=== PATIENT | male | born 1990 | race Caucasian/White ===

== ENCOUNTER 2019-04-22 21:28 | Emergency (ER) | payer SELFPAY ==
[2019-04-22 21:33] VITALS: BP 173/86; PULSE 84; RESP 16; TEMP 36.6; O2SAT 96; BMI 32.5
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
[2019-04-22] MEDS: ketorolac 30 mg/mL INJ IM (21:55)
[2019-04-22 22:27] VITALS: BP 131/68; PULSE 72; RESP 18; O2SAT 98
== END 2019-04-22 22:30 | disposition home or self-care (01) ==
PROVIDERS: Emergency Provider Emergency Medicine
DX: S39.012A Strain of muscle, fascia and tendon of lower back, initial encounter (principal); S13.4XXA Sprain of ligaments of cervical spine, initial encounter; Z79.84 Long term (current) use of oral hypoglycemic drugs; F17.210 Nicotine dependence, cigarettes, uncomplicated; V53.5XXA Driver of pick-up truck or van injured in collision with car, pick-up truck or van in traffic accident, initial encounter
CPT/HCPCS: 72040; 72100; 96372; 99281; J1885

== ENCOUNTER 2024-10-30 11:39 | Emergency (ER) | payer OTHER, SELFPAY ==
[2024-10-30 11:47] VITALS: BP 162/65; PULSE 89; RESP 18; TEMP 36.8; O2SAT 98; BMI 30.5
--- NOTE | 2024-10-30 11:54 | XR_ITS ---
WS: [id number] XR foot LT min 3V* [id number] REASON FOR EXAM: Trauma FINDINGS: No fracture identified. Mild valgus subluxation at the first MTP joint. Mild varus subluxation at the first TMT joint. Minimal osteoarthropathy at both joint levels. Joint spaces of the forefoot, midfoot, and hindfoot are otherwise intact and well preserved. XR/XR foot LT min 3V* [id number] IMPRESSION: No acute bone or joint abnormality.
--- NOTE | 2024-10-30 12:05 | W.ED.EXTPRO ---
HPI - Extremity Problem General: Chief complaint: Extremity Injury, Lower Stated complaint: dropped a steel plate on L foot, urgent care sent Time Seen by Provider: 10/30/24 11:54 History of Present Illness: 34-year-old male who presents emergency room after dropping a heavy piece of steel on his left toe while it was in his boot while he was at work. No other injuries. Patient is diabetic he is not sure of his last tetanus shot Related Data Home Medications ?Medication ?Instructions ?Recorded ?Confirmed metformin 1,000 mg tablet 1,000 mg PO BID 04/22/19 04/22/19 Previous Rx's ?Medication ?Instructions ?Recorded methocarbamol 750 mg tablet 750 mg PO Q6H #30 tabs 04/22/19 (Robaxin-750) naproxen 500 mg tablet,delayed 500 mg PO BID PRN pain #20 tabs 04/22/19 release (EC-Naprosyn) amoxicillin 875 mg-potassium 1 tab PO BID #20 tabs 10/30/24 clavulanate 125 mg tablet hydrocodone 5 mg-acetaminophen 325 1 tab PO Q6H PRN pain #10 tabs 10/30/24 mg tablet Allergies Allergy/AdvReac Type Severity Reaction Status Date / Time No Known Allergies Allergy Verified 04/22/19 21:32 [facility] ED [facility]: Medical History (Updated 10/30/24 @ 16:29 by Reinier Nascimento DO) Diabetes Social History Smoking and tobacco/nicotine status: current every day tobacco/nicotine user Physical Exam Const: COMMON NORMALS: no acute distress GENERAL APPEARANCE: cooperative and comfortable ORIENTATION/CONSCIOUSNESS: Yes awake, Yes oriented to person, Yes oriented to place and Yes oriented to time HENMT: COMMON NORMALS: normocephalic, atraumatic and hearing grossly normal bilaterally HEAD & SCALP: normocephalic and atraumatic Extremity: OTHER: Crush injury to the great toe as in the picture above with destruction of the nail. Neuro: SENSORIUM/ORIENTATION: Yes oriented to person, Yes oriented to place and Yes oriented to time Skin: COMMON NORMALS: no rashes or lesions noted GENERAL SKIN EXAM: no rashes or lesions noted Course Vital Signs: Vital signs: Vital Signs Temperature 98.2 F 10/30/24 11:47 Pulse Rate 73 10/30/24 13:44 Respiratory Rate 16 10/30/24 12:19 Blood Pressure 144/84 10/30/24 12:19 Pulse Oximetry 99 10/30/24 13:44 Oxygen Delivery Me thod Room Air 10/30/24 12:19 MDM - Extremity (Nontraumatic) Medical Decision Making Some questionable bone exposure no fracture noted on the x-ray. Discussed with podiatry. Dr. Carver was kind enough to come and see the patient he removed the nail and sutured the soft tissue back approximately. He will follow-up in the office. Patient discharged home on oral antibiotics and pain medications case management has made follow-up appointment for him Lab Data Radiology Impressions Foot X-Ray 10/30/24 11:54 IMPRESSION: No acute bone or joint abnormality. 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 use: without residential use Diabetes mellitus complication status: without complication Qualified Code(s): E11.9 - Type 2 diabetes mellitus without complications Condition: Stable Prescriptions: New amoxicillin-pot clavulanate 875-125 mg tablet 1 tab PO BID Qty: 20 0RF hydrocodone-acetaminophen 5-325 mg tablet 1 tab PO Q6H PRN (Reason: pain) Qty: 10 0RF No Action metformin 1,000 mg Tablet 1,000 mg PO BID Robaxin-750 750 mg tablet 750 mg PO Q6H Qty: 30 0RF EC-Naprosyn 500 mg tablet,delayed release (DR/EC) 500 mg PO BID PRN (Reason: pain) Qty: 20 0RF Discharge Orders: Discharge ED (Routine); Ordered 10/30/24 Ordered By: Reinier Nascimento Discharge Diet: Usual diet Patient Instructions: Opioid Safety, Pain Management, Patient Portal & Emiliano Instructions Activity Restrictions/Additional Instructions: Thank you for choosing [facility] for your healthcare needs today. It is very important that you follow up as instructed or that you return to the Emergency Department should you have concerns or if your condition changes or worsens in any way. You were seen in the emergency room after a crush injury to your left great toe. You are given a dose of antibiotics and your tetanus was updated. Start on oral antibiotics tomorrow. Dr. Carver seen you and revamped the toe and removed the remainder of the nail. You should see him in the office in 1 week. 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
[2024-10-30] MEDS: tetanus-dipt-pertussis 0.5 mL SDV IM (12:15)
[2024-10-30] MEDS: ceFAZolin 1,000 mg SDV 1000 MG IVP (12:17)
[2024-10-30 12:19] VITALS: BP 144/84; PULSE 86; RESP 16; O2SAT 97
--- NOTE | 2024-10-30 13:19 | PM.CONSULT ---
Providers/Reason For Consult Consulting Physician/Specialty*: Aaliyah Mcconnell.P.MFabian/podiatry Reason for Consult*: Left hallux laceration History of Present Illness History of Present Illness Omid Sommer is a 34 year old male who dropped a steel plate on his left foot earlier today. Patient states that steel plate cut through the boot and smashed the tip of his toe. He went to urgent care where he was directed to our ER for further workup and evaluation. Podiatry was consulted to evaluate and treat. Patient does have history of type 2 diabetes. He does not know his most recent A1c score. He states that he does not check his blood sugars as frequently as he should. Review of Systems General: Reports: 10 or more systems reviewed and unremarkable except in HPI and below Const: Denies: fever(s), chills, body aches or change in appetite Eyes: Denies: change in vision or blurry vision Card: Denies: chest pain, palpitations or irregular heart rhythm Resp: Denies: dyspnea GI: Denies: abdominal pain, nausea, vomiting or diarrhea Musc: Reports: joint stiffness Skin/Breast: Reports: non-healing lesions and lesions Neuro: Reports: numbness in extremities Medications/Allergies Home Medications ?Medication ?Instructions ?Recorded ?Confirmed ?Last Taken ?Type metformin 1,000 mg tablet 1,000 mg PO BID 04/22/19 04/22/19 04/22/19 08:00 History methocarbamol 750 mg tablet 750 mg PO Q6H #30 tabs 04/22/19 Unknown Rx (Robaxin-750) naproxen 500 mg tablet,delayed 500 mg PO BID PRN pain #20 tabs 04/22/19 Unknown Rx release (EC-Naprosyn) Allergies Allergy/AdvReac Type Severity Reaction Status Date / Time No Known Allergies Allergy Verified 04/22/19 21:32 PFSH Acute PFSH: Social History Smoking and tobacco/nicotine status: current every day tobacco/nicotine user Vitals/I&O/Wt Last Vital Signs Temp 98.2 F 10/30/24 11:47 Pulse 86 10/30/24 12:19 Resp 16 10/30/24 12:19 BP 144/84 10/30/24 12:19 Pulse Ox 97 10/30/24 12:19 O2 Del Method Room Air 10/30/24 12:19 Weight last 48 hrs Weight 225 lb Physical Exam Narrative: BELOW IS A FOCUSED LOWER EXTREMITY EXAM GENERAL: A&O x 3 VASCULAR: DP/PT pulses palpable 2/4 with CFT intact, <3seconds to distal digits DERMATOLOGICAL: Left hallux shows laceration measuring 4 cm with impacted medial border of left hallux nail plate. Nail plate split. No bone exposed. MUSCULOSKELETAL: Pain with palpation of left hallux distally. Full musculoskeletal exam deferred secondary to trauma NEUROLOGICAL: Neurological sensation to the affected foot and ankle is present through L4-S1 dermatomes with no hyper/hypoesthesias, negative Tinel or Valleix's sign IMAGING: Three-view x-rays left foot taken at today's visit were independently interpreted by me. These show no fracture or dislocation. No residual foreign body visualized. A&P Assessment and plan 1. Onycholysis of toenail: 2. Laceration of great toe of left foot: Plan: Podiatry was consulted to evaluate patient in the emergency department. Wound was evaluated and was noted to be free from bone exposure. Wound was irrigated with copious months of sterile saline to evaluate extent of wound. Discussed with patient that no surgical intervention is warranted. Wound can be cleaned out here in the emergency department and sutured closed after removal of the nail plate. Patient verbalized understanding to this plan and was agreeable to this plan. Left hallux was anesthetized using 20 cc of 1% lidocaine plain. After anesthesia was achieved, a tourniquet was applied to the left hallux. The left hallux nail plate was removed from the left hallux. The medial portion of the nail plate was noted to be embedded into the deeper tissues of the medial border of the hallux. This was also removed without incident. The site underwent copious amounts of irrigation via sterile saline. After irrigation the laceration was inspected. No foreign bodies were visualized. 3-0 Prolene was then used to reapproximate the 4 cm long laceration. This was then dressed with Xeroform, 2 x 2 gauze, Coban. Patient was instructed to keep dressing clean, dry, intact. Do not remove dressing. Follow-up with podiatry within 1 week of discharge. Also recommended broad-spectrum oral antibiotics be given to patient x 7 days. Patient tolerated procedure well and without complication. I did discuss the possibility of distal tissue necrosis. We will monitor this in the outpatient setting. PDMP PDMP Reviewed: Not Reviewed Coding Level of Care Code Acute Code for Chg Fwd Diagnoses Onycholysis of toenail L60.1 Laceration of great toe of left foot S91.112A
[2024-10-30 13:44] VITALS: PULSE 73; O2SAT 99
== END 2024-10-30 13:47 | disposition home or self-care (01) ==
PROVIDERS: Emergency Provider Family Medicine
DX: S91.212A Laceration without foreign body of left great toe with damage to nail, initial encounter (principal); E11.9 Type 2 diabetes mellitus without complications; Z79.84 Long term (current) use of oral hypoglycemic drugs; Z72.0 Tobacco use; W20.8XXA Other cause of strike by thrown, projected or falling object, initial encounter
CPT/HCPCS: 73630; 90471; 90715; 96374; 99284; J0690